=== PATIENT | female | born 1985 | race Caucasian/White ===

== ENCOUNTER 2019-11-01 13:14 | Emergency (ER) | payer MEDICAID ==
[~2019-11-01] VITALS: Ht 157.5 cm; Wt 58.0 kg
[~2019-11-01 13:14] MED LIST: BUTA-281 PO; CALA180L2 TP; DIPH-423 PO; FAMO20TA8 PO; LORA0.5T PO; NORCO10T PO; PRED10TA23 PO; PROM12.512 PO
[2019-11-01] MEDS ORDERED: ondansetron 4mg rapidly disintigrating tab PO ONE (14:10)
[2019-11-01] MEDS ORDERED: ketorolac trometh inj. 60 MG/2 ML VIAL IM ONE (14:10)
[2019-11-01 14:58] LABS: BASOPHILS # (AUTO) 0.1 X10'3 (0-0.2); BASOPHILS % (AUTO) 0.8 % (0-1); EOSINOPHILS # (AUTO) 0.2 X10'3 (0-0.9); EOSINOPHILS % (AUTO) 1.5 % (0-6); HEMATOCRIT 37.6 % (35.0-45.0); HEMOGLOBIN 13.3 g/dl (12.0-16.0); LYMPHOCYTES # (AUTO) 4.2 X10'3 (1.1-4.8); LYMPHOCYTES % (AUTO) 30.4 % (21-51); MEAN CORPUSCULAR HEMOGLOBIN 31.6 PG (27.0-31.0); MEAN CORPUSCULAR HGB CONC 35.4 g/dL (33.0-36.5); MEAN CORPUSCULAR VOLUME 89.3 FL (78-98); MEAN PLATELET VOLUME 8.1 FL (7.4-10.4); MONOCYTES # (AUTO) 0.8 X10'3 (0-0.9); MONOCYTES % (AUTO) 5.5 % (2-12); NEUTROPHILS # (AUTO) 8.4 X10'3 (1.8-7.7); NEUTROPHILS % (AUTO) 61.8 % (42-75); PLATELET COUNT 295 X10'3 (140-440); RED BLOOD COUNT 4.21 X10'6 (4.20-5.60); WHITE BLOOD COUNT 13.7 X10'3 (4.5-11.0)
[2019-11-01] MEDS ORDERED: AMOX-422 PO (15:16)
[2019-11-01] MEDS ORDERED: HYDR-3965 PO (15:16)
[2019-11-01] MEDS ORDERED: HYDROcodone/acetaminophen 5mg/325mg tablet PO ONE (15:25)
[2019-11-01 15:36] VITALS: BP 110/71
== END 2019-11-01 15:39 | disposition home or self-care (01) ==
LOC: ER 13:15
DX: L02.01 Cutaneous abscess of face (principal); K08.89 Other specified disorders of teeth and supporting structures; G43.909 Migraine, unspecified, not intractable, without status migrainosus; E78.00 Pure hypercholesterolemia, unspecified; Z90.49 Acquired absence of other specified parts of digestive tract; Z98.890 Other specified postprocedural states; Z85.3 Personal history of malignant neoplasm of breast; Z88.5 Allergy status to narcotic agent; Z88.1 Allergy status to other antibiotic agents; Z88.7 Allergy status to serum and vaccine; Z79.899 Other long term (current) drug therapy
CPT/HCPCS: 36415; 70486; 85025; 96372; 99284; J1885

== ENCOUNTER 2020-01-03 18:38 | Emergency (ER) | payer MEDICAID ==
[~2020-01-03] VITALS: Ht 157.5 cm; Wt 54.5 kg
[2020-01-03] MEDS ORDERED: PER5325T PO (19:40)
[2020-01-03] MEDS ORDERED: ketorolac trometh. 30mg/ml inj. IM ONE (19:45)
[2020-01-03] MEDS ORDERED: NALO4SPR BOTHNARES (19:47)
[2020-01-03] MEDS ORDERED: CARI250T PO (20:01)
[2020-01-03 20:07] VITALS: BP 119/78
== END 2020-01-03 20:10 | disposition home or self-care (01) ==
LOC: ER 18:38
DX: G43.909 Migraine, unspecified, not intractable, without status migrainosus (principal); E78.00 Pure hypercholesterolemia, unspecified; Z90.49 Acquired absence of other specified parts of digestive tract; Z98.890 Other specified postprocedural states; Z85.3 Personal history of malignant neoplasm of breast; Z88.1 Allergy status to other antibiotic agents; Z88.5 Allergy status to narcotic agent; Z88.8 Allergy status to other drugs, medicaments and biological substances; Z79.899 Other long term (current) drug therapy
CPT/HCPCS: 96372; 99283; J1885

== ENCOUNTER 2020-01-14 15:45 | Emergency (ER) | payer MEDICAID ==
[~2020-01-14] VITALS: Ht 157.5 cm; Wt 52.3 kg
[~2020-01-14 15:45] MED LIST changes: +NALO4SPR BOTHNARES; +PER5325T PO
[2020-01-14] MEDS ORDERED: ketorolac tromethamine 15mg/ml inj. IV ONE (18:20)
[2020-01-14] MEDS ORDERED: oxcarbazepine 150mg tablet PO STA ×2 (18:35→19:41)
[2020-01-14] MEDS ORDERED: baclofen 10mg tablet PO STA ×2 (18:56→19:41)
--- NOTE | 2020-01-14 19:14 | NUR ---
pt is refusing any meds that we are offereing her and now wants to leave because she feel like we are not doing anything for her pain.
[2020-01-14] MEDS ORDERED: LIDOcaine 4% (40 mg/ml) topical solution 50ml TP ONE ×2 (19:35→20:35)
[2020-01-14 20:57] VITALS: BP 125/95
== END 2020-01-14 20:59 | disposition home or self-care (01) ==
LOC: ER 15:46
DX: G50.0 Trigeminal neuralgia (principal); G89.18 Other acute postprocedural pain; G43.909 Migraine, unspecified, not intractable, without status migrainosus; E78.00 Pure hypercholesterolemia, unspecified; F41.9 Anxiety disorder, unspecified; F32.9 Major depressive disorder, single episode, unspecified; Z85.3 Personal history of malignant neoplasm of breast; Z85.43 Personal history of malignant neoplasm of ovary; Z90.49 Acquired absence of other specified parts of digestive tract; Z90.89 Acquired absence of other organs; Z98.890 Other specified postprocedural states; Z88.1 Allergy status to other antibiotic agents; Z88.5 Allergy status to narcotic agent; Z88.8 Allergy status to other drugs, medicaments and biological substances; Z79.899 Other long term (current) drug therapy
CPT/HCPCS: 96374; 99284; J1885

== ENCOUNTER 2020-05-06 12:27 | Outpatient (CLI) | payer OTHER, MEDICAID ==
[~2020-05-06 12:27] MED LIST changes: -PER5325T PO
== END 2020-05-06 23:59 | disposition home or self-care (01) ==
LOC: LAB 12:27
PROVIDERS: ATTEND Internal Medicine Hematology & Oncology
DX: R23.3 Spontaneous ecchymoses (principal)
CPT/HCPCS: 36415; 85576

== ENCOUNTER 2021-01-17 23:57 | Emergency (ER) | payer OTHER, MEDICAID ==
[~2021-01-17] VITALS: Ht 154.9 cm; Wt 56.8 kg
[2021-01-18 00:09] VITALS: BP 122/86
--- NOTE | 2021-01-18 00:49 | NUR ---
PT TO ROOM, ASSUMED CARE
[2021-01-18] MEDS ORDERED: TERB250T4 PO (02:23)
[2021-01-18] MEDS ORDERED: terbinafine 250mg tablet PO ONE (02:25)
[2021-01-18] MEDS ORDERED: terbinafine 250mg tablet PO SCH (02:25)
== END 2021-01-18 02:40 | disposition home or self-care (01) ==
LOC: ER 23:58
DX: B35.1 Tinea unguium (principal); M79.675 Pain in left toe(s); G43.909 Migraine, unspecified, not intractable, without status migrainosus; E78.00 Pure hypercholesterolemia, unspecified; F41.9 Anxiety disorder, unspecified; F32.9 Major depressive disorder, single episode, unspecified; Z90.89 Acquired absence of other organs; Z90.49 Acquired absence of other specified parts of digestive tract; Z98.890 Other specified postprocedural states; Z85.43 Personal history of malignant neoplasm of ovary; Z85.3 Personal history of malignant neoplasm of breast; Z88.1 Allergy status to other antibiotic agents; Z88.8 Allergy status to other drugs, medicaments and biological substances; Z88.0 Allergy status to penicillin; Z79.899 Other long term (current) drug therapy
CPT/HCPCS: 99283

== ENCOUNTER 2023-09-24 22:34 | Emergency (ER) | payer MEDICAID, OTHER ==
[~2023-09-24] VITALS: Ht 157.5 cm; Wt 66.8 kg
[~2023-09-24 22:34] MED LIST changes: +BUTA-245 PO; -BUTA-281 PO; -CALA180L2 TP; -FAMO20TA8 PO; -LORA0.5T PO; -PRED10TA23 PO; -PROM12.512 PO
[2023-09-24 22:49] VITALS: BP 128/81; PULSE 121; RESP 18; TEMP 98.8; O2SAT 95
[2023-09-25] MEDS ORDERED: IBUP-1984 PO (00:18)
[2023-09-25] MEDS ORDERED: ketorolac trometh inj. 60 MG/2 ML VIAL IM STA (00:31)
[2023-09-26] MEDS ORDERED: METH-798 PO (18:51)
== END 2023-09-25 02:29 | disposition home or self-care (01) ==
LOC: ER 22:34
DX: M76.62 Achilles tendinitis, left leg (principal); G43.909 Migraine, unspecified, not intractable, without status migrainosus; E78.00 Pure hypercholesterolemia, unspecified; Z90.49 Acquired absence of other specified parts of digestive tract; Z85.3 Personal history of malignant neoplasm of breast; Z88.1 Allergy status to other antibiotic agents; Z88.8 Allergy status to other drugs, medicaments and biological substances; Z79.2 Long term (current) use of antibiotics; Z79.899 Other long term (current) drug therapy; Z88.2 Allergy status to sulfonamides
CPT/HCPCS: 73590; 96372; 99283; J1885

== ENCOUNTER 2023-09-26 17:52 | Emergency (ER) | payer OTHER ==
[~2023-09-26] VITALS: Ht 157.5 cm; Wt 66.0 kg
[~2023-09-26 17:52] MED LIST changes: +IBUP-1984 PO
[2023-09-26 18:28] VITALS: BP 126/85; PULSE 104; TEMP 98.2; O2SAT 95
[2023-09-26] MEDS ORDERED: HYDROcodone/acetaminophen 5mg/325mg tablet PO ONE (18:50)
[2023-09-26] MEDS ORDERED: METH-798 PO (18:51)
[2023-09-26 19:11] VITALS: RESP 17
== END 2023-09-26 22:46 | disposition home or self-care (01) ==
LOC: ER 17:52
DX: M76.61 Achilles tendinitis, right leg (principal); G43.909 Migraine, unspecified, not intractable, without status migrainosus; E78.00 Pure hypercholesterolemia, unspecified; F32.A Depression, unspecified; Z04.9 Encounter for examination and observation for unspecified reason; W19.XXXA Unspecified fall, initial encounter; Y93.89 Activity, other specified; Y92.89 Other specified places as the place of occurrence of the external cause; Y99.8 Other external cause status
CPT/HCPCS: 99283; A6446; A6449

== ENCOUNTER 2023-10-18 17:37 | Emergency (ER) | payer OTHER, BC ==
[~2023-10-18] VITALS: Ht 157.5 cm; Wt 75.9 kg
[~2023-10-18 17:37] MED LIST changes: -IBUP-1984 PO; +METH-798 PO
[2023-10-18 17:58] LABS: BASOPHILS # (AUTO) 0.1 X10'3 (0-0.2); BASOPHILS % (AUTO) 1.1 % (0-1); EOSINOPHILS # (AUTO) 0.2 X10'3 (0-0.9); EOSINOPHILS % (AUTO) 2.2 % (0-6); HEMATOCRIT 34.9 % (35.0-45.0); LYMPHOCYTES # (AUTO) 3.1 X10'3 (1.1-4.8); LYMPHOCYTES % (AUTO) 36.1 % (21-51); MEAN CORPUSCULAR HGB CONC 34.3 g/dL (33.0-36.5); MEAN CORPUSCULAR VOLUME 87.6 FL (78-98); MONOCYTES # (AUTO) 0.7 X10'3 (0-0.9); MONOCYTES % (AUTO) 8.2 % (2-12); NEUTROPHILS # (AUTO) 4.5 X10'3 (1.8-7.7); NEUTROPHILS % (AUTO) 52.4 % (42-75); PLATELET COUNT 375 X10'3 (140-440); RED BLOOD COUNT 3.98 X10'6 (4.20-5.60); RED CELL DISTRIBUTION WIDTH 12.2 % (11.5-14.5); WHITE BLOOD COUNT 8.5 X10'3 (4.5-11.0)
[2023-10-18 18:16] LABS: ALANINE AMINOTRANSFERASE 52 U/L (12-78); ALBUMIN 3.6 G/DL (3.4-5.0); ALBUMIN/GLOBULIN RATIO 0.9 (1.1-1.5); ALKALINE PHOSPHATASE 84 IU/L (46-116); ANION GAP 12 (8-16); ASPARTATE AMINO TRANSFERASE 33 U/L (10-37); BILIRUBIN,TOTAL 0.2 MG/DL (0.1-1.0); BLOOD UREA NITROGEN 19 MG/DL (7-18); BUN/CREATININE RATIO 17.9 (10.0-20.0); CALCIUM 8.5 MG/DL (8.5-10.1); CHLORIDE 104 MMOL/L (99-107); CREATININE 1.06 MG/DL (0.40-0.90); GLUCOSE 106 MG/DL (70-104); POTASSIUM 4.1 MMOL/L (3.5-5.1); SODIUM 141 MMOL/L (135-145); TOTAL CARBON DIOXIDE 25.3 MMOL/L (24-32); TOTAL PROTEIN 7.5 G/DL (6.4-8.2); eGFR 58 ML/MIN
[2023-10-18 18:22] LABS: PRO BRAIN NATRIURETIC PEPTIDE < 30 PG/ML (0-125)
[2023-10-18 18:36] VITALS: TEMP 98.3
[2023-10-19 02:14] VITALS: BP 137/86; PULSE 96; RESP 16; O2SAT 98
[2023-10-19 02:43] LABS: FREE T4 (FREE THYROXINE) 0.77 NG/DL (0.73-1.40)
== END 2023-10-19 02:16 | disposition home or self-care (01) ==
LOC: ER 17:38
DX: R07.89 Other chest pain (principal); G43.909 Migraine, unspecified, not intractable, without status migrainosus; E78.00 Pure hypercholesterolemia, unspecified; Z88.0 Allergy status to penicillin; Z88.8 Allergy status to other drugs, medicaments and biological substances; Z88.5 Allergy status to narcotic agent; Z79.899 Other long term (current) drug therapy; Z79.2 Long term (current) use of antibiotics; Z98.890 Other specified postprocedural states; Z90.49 Acquired absence of other specified parts of digestive tract
CPT/HCPCS: 36415; 71045; 80053; 83880; 84439; 84443; 84484; 85025; 93005; 99285